=== PATIENT | female | born 1940 ===

== ENCOUNTER 2025-04-12 19:12 | Inpatient (IN) ==
[2025-04-12 19:46] LABS: Hematocrit (blood only) 30.6 % (37.0-47.0); Hemoglobin 10.2 g/dl (12.0-16.0); Immature Granulocytes # (auto) 0.05 K/uL (0.01-0.20); Immature Granulocytes % (auto) 0.5 %; Mean Corpuscular Hemoglobin 29.0 pg (25.0-34.0); Mean Corpuscular Volume 86.9 fL (80.0-100.0); Platelet Count 376 K/uL (130-400); RDW Standard Deviation 43.5 fL (36.4-46.3); Red Blood Count 3.52 M/uL (4.20-5.40); White Blood Count 9.47 K/ul (4.8-10.8)
[2025-04-12 20:02] LABS: Anion Gap 7.0 (3-11); Blood Urea Nitrogen 23.0 mg/dl (6-23); Calcium 7.5 mg/dl (8.6-10.3); Carbon Dioxide 27.0 mmol/L (21-32); Chloride 104.0 mmol/L (98-107); Creatinine Clr Calc Pharmacy 21.2 ml/min; Glucose 156.0 mg/dl (70-99(Fasting)); Magnesium 1.3 mg/dl (1.7-2.4); Potassium 3.6 mmol/L (3.5-5.1); Sodium 138.0 mmol/L (136-145)
[2025-04-12] MEDS: MAGNESIUM SULFATE / D5W 1 GM/100 ML BAG IV SCH (20:13)
[2025-04-12] MEDS: SODIUM CHLORIDE 0.9% 1,000 ML IV SCH (20:37)
[2025-04-12] MEDS: FIDAXOMICIN 200 MG TAB PO ONE (20:37)
[2025-04-12 21:45] LABS: Alanine Aminotransferase 75.0 U/L (7-52); Albumin Level 2.0 gm/dl (3.4-5.0); Alkaline Phosphatase 140.0 U/L (34-104); Bilirubin,Total 0.6 mg/dl (0.2-1.0); Total Protein 5.2 gm/dl (6.0-8.3)
--- NOTE | 2025-04-12 22:07 | History & Physical Report ---
Date of Service April 12, 2025 Assessment & Plan (1) C. difficile colitis: (2) Acute respiratory failure with hypoxia: (3) Hypomagnesemia: (4) Acute kidney injury: (5) Pneumonia: (6) Seizure disorder: Plan The patient is an 85-year-old female with a past medical history including GERD, hypertension, hyperlipidemia, seizure disorder, insomnia, constipation, dizziness, insomnia, and decreased oral intake. The patient is referred to the emergency department from [facility], after testing positive for C. difficile infection. The patient herself is confused and cannot contribute significantly to HPI review of systems. She was admitted to [facility] yesterday, and upon arrival to the facility she was noted to be weak and lethargic. Throughout last evening she would not allow staff to help her. Her oral intake was very poor last evening, but does not like peanut butter crackers. She was noted to be incontinent of stool last evening, and this today stool sample was obtained and was sent for analysis, and returned positive for C. difficile. She was then referred to [facility] emergency department for further evaluation and treatment. Significant laboratories in the ED showed magnesium 1.7, calcium 7.5, creatinine 1.81., AST 99, ALT 77, albumin 2.0. Chest x-ray showed left lower lobe pneumonia. EKG showed A-fib with RVR at 102. From the ED she was started on normal saline 80 mL/h. From the ED also had ordered 2 g magnesium sulfate IV. She was then referred for evaluation for admission to the [facility] hospitalist service. Acute respiratory failure with hypoxia- Pulse ox 80% on room air, improved to 95% on 2 L nasal cannula Chest x-ray with left lower lobe pneumonia MRSA swab Cefepime 2 g IV every 12 hours Duonebs every 2 hours as needed C. difficile colitis- Received Dificid x 1 in ED Placed on vancomycin 125 mg p.o. 4 times daily Zofran 4 mg IV every 6 hours as needed Pantoprazole 40 mg IV twice daily Acute kidney injury- Creatinine 1.81 on admission, presumptively this is acute kidney injury, as we have no baseline for comparison NSS 80 mL/h x 2 L, Recheck laboratories in the a.m. Hypomagnesemia- Magnesium 1.3 on admission Written for 2 g IV from the ED, will give additional 1 for total of 3 g Repeat laboratories in the a.m. Atrial fibrillation- Systolic blood pressure 96-100 Optimize magnesium as above Placed on IV fluids as above The patient will be admitted to telemetry for serial cardiac enzymes, serial EKG's, cardiac rhythm monitoring and a 2-D echocardiogram with Dopplers. Will need to get further records to see if there is a contraindication to the patient being anticoagulated Abnormal LFTs- No baseline for comparison Repeat laboratories in a.m., and further workup if indicated History of Present Illness Chief Complaint: The patient is referred to the emergency department from [facility], after testing positive for C. difficile infection. The patient he rself is confused and cannot contribute significantly to HPI review of systems. She was admitted to [facility] yesterday, and upon arrival to the facility she was noted to be weak and lethargic. Throughout last evening she would not allow staff to help her. Her oral intake was very poor last evening, but does not like peanut butter crackers. She was noted to be incontinent of stool last evening, and this today stool sample was obtained and was sent for analysis, and returned positive for C. difficile. She was then referred to [facility] emergency department for further evaluation and treatment. Primary Care Provider: [facility] The patient is an 85-year-old female with a past medical history including GERD, hypertension, hyperlipidemia, seizure disorder, insomnia, constipation, dizziness, insomnia, and decreased oral intake. The patient is referred to the emergency department from [facility], after testing positive for C. difficile infection. The patient herself is confused and cannot contribute significantly to HPI review of systems. She was admitted to [facility] yesterday, and upon arrival to the facility she was noted to be weak and lethargic. Throughout last evening she would not allow staff to help her. Her oral intake was very poor last evening, but does not like peanut butter crackers. She was noted to be incontinent of stool last evening, and this today stool sample was obtained and was sent for analysis, and returned positive for C. difficile. She was then referred to [facility] emergency department for further evaluation and treatment. Significant laboratories in the ED showed magnesium 1.7, calcium 7.5, creatinine 1.81., AST 99, ALT 77, albumin 2.0. Chest x-ray showed left lower lobe pneumonia. EKG showed A-fib with RVR at 102. From the ED she was started on normal saline 80 mL/h. From the ED also had ordered 2 g magnesium sulfate IV. She was then referred for evaluation for admission to the [facility] Hospitalist service. Allergies Allergy/AdvReac Type Severity Reaction Status Date / Time penicillin G Allergy Mild Rash Verified 04/12/25 22:21 Past Med/Surg History Problem List (Updated 04/12/25 @ 23:42 by Levon Jones MD) Acute respiratory failure with hypoxia Pneumonia Acute kidney injury Hypomagnesemia (Acute) C. 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 HEENT--PERRL, EOMI, mucous membranes and oropharynx dry. Neck--supple. No JVD. No bruits. Thyroid normal, trachea midline, no adenopathy. Heart--normal S1 and S2. No murmurs, rubs or gallops. Lungs--clear bilaterally, no respiratory distress, no accessory muscle use. Abdomen--normal bowel sounds and soft. Nontender. Nondistended, no hernias or masses, no organomegaly. Extremities--No edema. Dermatologic--skin is dry Neurologic--cranial nerves II through XII grossly intact. Rheumatologic--limited exam due to general weakness and confusion Psychiatric-confused Results & Data Results & Data Vital Signs (Past 12 Hours) Vital Signs Temp Pulse Pulse Resp BP BP Pulse Ox 04/12/25 21:17 94 04/12/25 21:17 88 L 04/12/25 21:17 101 H 22 99/56 L 92 04/12/25 20:36 104 H 18 96/68 L 96 04/12/25 19:20 36.8 C 110 H 20 110/79 92 04/12/25 19:16 114 H O2 Del Method O2 Flow Rate 04/12/25 21:17 Nasal Cannula 2 04/12/25 21:17 Room Air 04/12/25 21:17 Nasal Cannula 2 04/12/25 20:36 Nasal Cannula 2 04/12/25 19:20 Room Air 04/12/25 19:16 Laboratory Results Laboratory Results WBC 9.47 K/ul (4.8-10.8) 04/12/25 19:24 RBC 3.52 M/uL (4.20-5.40) L 04/12/25 19:24 Hgb 10.2 g/dl (12.0-16.0) L 04/12/25 19:24 Hct 30.6 % (37.0-47.0) L 04/12/25 19:24 MCV 86.9 fL (80.0-100.0) 04/12/25 19:24 MCH 29.0 pg (25.0-34.0) 04/12/25 19:24 MCHC 33.3 g/dL (32.0-36.0) 04/12/25 19:24 RDW Std Deviation 43.5 fL (36.4-46.3) 04/12/25 19:24 RDW Coeff of Mary 13.9 % (11.5-14.5) 04/12/25 19:24 Plt Count 376 K/uL (130-400) 04/12/25 19:24 MPV 10.2 fL (9.4-12.4) 04/12/25 19:24 Immature Gran % (Auto) 0.5 % 04/12/25 19:24 Neut % (Auto) 83.0 % 04/12/25 19:24 Lymph % (Auto) 8.6 % 04/12/25 19:24 Mckean % (Auto) 6.2 % 04/12/25 19:24 Eos % (Auto) 1.2 % 04/12/25 19:24 Baso % (Auto) 0.5 % 04/12/25 19:24 Neut # (Auto) 7.86 K/uL (1.40-6.50) H 04/12/25 19:24 Lymph # (Auto) 0.81 K/uL (1.20-3.40) L 04/12/25 19:24 Mckean # (Auto) 0.59 K/uL (0.11-0.59) 04/12/25 19:24 Eos # (Auto) 0.11 K/uL (0.00-0.50) 04/12/25 19:24 Baso # (Auto) 0.05 K/uL (0.00-0.20) 04/12/25 19:24 Immature Gran # (Auto) 0.05 K/uL (0.01-0.20) 04/12/25 19:24 Sodium 138 mmol/L (136-145) 04/12/25 19:24 Potassium 3.6 mmol/L (3.5-5.1) 04/12/25 19:24 Chloride 104 mmol/L (98-107) 04/12/25 19:24 Carbon Dioxide 27 mmol/L (21-32) 04/12/25 19:24 Anion Gap 7 (3-11) 04/12/25 19:24 BUN 23 mg/dl (6-23) 04/12/25 19:24 Creatinine 1.81 mg/dl (0.6-1.2) H 04/12/25 19:24 Est Cr Clr Drug Dosing 21.2 ml/min 04/12/25 19:24 eGFR 27.43 04/12/25 19:24 BUN/Creatinine Ratio 12.7 (10-20) 04/12/25 19:24 Glucose 156 mg/dl (70-99(Fasting)) H 04/12/25 19:24 Calcium 7.5 mg/dl (8.6-10.3) L 04/12/25 19:24 Magnesium 1.3 mg/dl (1.7-2.4) L 04/12/25 19:24 Total Bilirubin 0.6 mg/dl (0.2-1.0) 04/12/25 19:24 Direct Bilirubin 0.2 mg/dl (0-0.2) 04/12/25 19:24 AST 99 U/L (13-39) H 04/12/25 19:24 ALT 75 U/L (7-52) H 04/12/25 19:24 Alkaline Phosphatase 140 U/L (34-104) H 04/12/25 19:24 Total Protein 5.2 gm/dl (6.0-8.3) L 04/12/25 19:24 Albumin 2.0 gm/dl (3.4-5.0) L 04/12/25 19:24 Code Status & VTE Plan Code Status DNR/DNI. Review of transfer records from [facility] notes that they have a DNR order on file at their facility VTE Prophylaxis Plan VTE Prophylaxis will be ordered: Yes PG Care Time/CCT Total # of Minutes Spent Total Time Spent with Patient: Total time spent is greater than 50% in coordination of care (as documented) at patient's floor/unit and/or counseling patient: Coding Level of Care Code 06265 INT INP/OBS CARE 375MIN Diagnoses C. difficile colitis A04.72 Acute respiratory failure with hypoxia J96.01 Hypomagnesemia E83.42 Acute kidney injury N17.9 Pneumonia J18.9 Seizure disorder G40.909
[2025-04-12] MEDS: MAGNESIUM SULFATE / D5W 1 GM/100 ML BAG IV ONE (22:22)
[2025-04-12] MEDS: NSS + 20MEQ KCL 20 MEQ/1,000 ML BAG IV SCH (22:26)
--- NOTE | 2025-04-12 23:42 | Emergency Department Note ---
History of Present Illness General Chief complaint: Diarrhea Stated complaint: CDIFF Time Seen by Provider: 04/12/25 19:13 History of Present Illness Provider complaint: Diarrhea weakness 85-year-old [facility]. Patient states she has had diarrhea for last few days. Patient states she feels very weak. No abdominal pain. No fever. No chest pain or difficulty breathing. Allergies Allergy/AdvReac Type Severity Reaction Status Date / Time penicillin G Allergy Mild Rash Verified 04/12/25 22:21 Past Med/Surg History Problem List (Updated 04/12/25 @ 23:42 by Levon Jones MD) Acute respiratory failure with hypoxia Pneumonia Acute kidney injury Hypomagnesemia (Acute) C. 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 Bladder cancer Oropharyngeal dysphagia Diverticulitis Dizziness Seizure disorder Hyperlipidemia GERD (gastroesophageal reflux disease) Atrial fibrillation Social History Smoking Status: Never smoker Preferred Language: Croatian Feels Safe at Home: Yes Physical Exam Vital Signs Vital Signs - 24 hr 04/12/25 19:16 04/12/25 19:20 04/12/25 20:36 Temperature 36.8 C Temperature Source Oral Pulse Rate 114 H 110 H Pulse Rate [Apical] 104 H Pulse Rhythm Regular Pulse Strength Normal Respiratory Rate 20 18 Respiratory Effort / Characteristics Non-Labored Spontaneous Respiratory Depth Normal Respiratory Pattern Regular Blood Pressure 110/79 Blood Pressure [Left Arm] 96/68 L Blood Pressure Mean 89 Blood Pressure Mean [Left Arm] 77 Blood Pressure Position Lying Blood Pressure Position [Left Arm] Lying Pulse Oximetry 92 96 Oxygen Delivery Method Room Air Nasal Cannula Oxygen Flow Rate 2 Sepsis Recent Fever Within 48 Hours No Sepsis New/Unexplained Change in Mental Status No Sepsis Action Taken by Nursing No Action Required 04/12/25 21:17 04/12/25 21:17 04/12/25 21:17 Temperature Temperature Source Pulse Rate Pulse Rate [Apical] 101 H Pulse Rhythm Pulse Strength Respiratory Rate 22 Respiratory Effort / Characteristics Non-Labored Respiratory Depth Normal Respiratory Pattern Regular Blood Pressure Blood Pressure [Left Arm] 99/56 L Blood Pressure Mean Blood Pressure Mean [Left Arm] 70 Blood Pressure Position Blood Pressure Position [Left Arm] Semi-fowlers Pulse Oximetry 92 88 L 94 Oxygen Delivery Method Nasal Cannula Room Air Nasal Cannula Oxygen Flow Rate 2 2 Sepsis Recent Fever Within 48 Hours Sepsis New/Unexplained Change in Mental Status Sepsis Action Taken by Nursing Physical Exam CV: Normal rate, regular rhythm, normal heart sounds and intact distal pulses. There is no peripheral edema. Palpable radial pulses bue. PULM/CHEST: Effort normal and breath sounds normal. No respiratory distress. No stridor. no wheezes. no rales. ABD: The abdomen is soft. There is no tenderness. Course Course 1912: The patient was evaluated in room B2. A complete history and physical exam was performed Cardiac monitoring: An order was placed for continuous cardiac monitoring. The monitor shows a rate of 100 with sinus rhythm interpreted by wy 2020: Vital signs stable. Labs show normal white blood cell count. Magnesium 1.3. Magnesium repletion started in the emergency department. Patient will be admitted to the hospitalist team. Dificid ordered for the patient. Administered Medications Potassium Chloride/Sodium Chloride (Normal Saline W/20 Meq Kcl) 20 meq in 1,000 mls @ 100 mls/hr IV .Q10H [facility] Stop: 04/13/25 17:29 Last Admin: 04/12/25 22:26 Dose: 100 mls/hr Documented By: RODRIGUE Magnesium Sulfate/Dextrose (Magnesium Sulfate / D5w) 1 gm in 100 mls @ 50 mls/hr IV ONE ONE Stop: 04/12/25 23:47 Last Admin: 04/12/25 22:22 Dose: 50 mls/hr Documented By: RODRIGUE Discontinued Medications Fidaxomicin (Fidaxomicin 200 Mg Tab) 200 mg PO NOW ONE Stop: 04/12/25 20:23 Last Admin: 04/12/25 20:37 Dose: 200 mg Documented By: JAKUB Magnesium Sulfate/Dextrose (Magnesium Sulfate / D5w) 1 gm in 100 mls @ 100 mls/hr IV Q1H [facility] Stop: 04/12/25 22:06 Last Infusion: 04/12/25 22:25 Dose: Infused Documented By: Admin: 04/12/25 21:18 Dose: 100 mls/hr Documented By: Infusion: 04/12/25 21:18 Dose: Infused Documented By: Admin: 04/12/25 20:13 Dose: 100 mls/hr Documented By: ETHAN Sodium Chloride (Nss) 1,000 mls @ 80 mls/hr IV .[id number] [facility] Stop: 04/15/25 20:29 Last Infusion: 04/12/25 22:25 Dose: 0 mls/hr Documented By: Admin: 04/12/25 20:37 Dose: 80 mls/hr Documented By: JAKUB Levetiracetam (Levetiracetam Oral Soln 100mg/Ml) 250 mg PO NOW STA Stop: 04/12/25 22:04 Last Admin: 04/12/25 22:55 Dose: 250 mg Documented By: RODRIGUE Miscellaneous Information (Patient's Allergy Info Needs Entered) 1 each N/A NOW STA Stop: 04/12/25 21:53 Last Admin: 04/12/25 22:21 Dose: Not Given Documented By: RODRIGUE Medical Decision Making Medical Records Attestation: I reviewed the patient's medical records. Medical records reviewed. Patient has a stool study performed from earlier today in our system which is positive for C. difficile toxin gene and toxin. Laboratory Data Attestation: I reviewed the patient's lab results. 04/12/25 19:24 04/12/25 19:24 Lab Results 04/12/25 Range/Units 19:24 WBC 9.47 (4.8-10.8) K/ul RBC 3.52 L (4.20-5.40) M/uL Hgb 10.2 L (12.0-16.0) g/dl Hct 30.6 L (37.0-47.0) % MCV 86.9 (80.0-100.0) fL MCH 29.0 (25.0-34.0) pg MCHC 33.3 (32.0-36.0) g/dL RDW Std Deviation 43.5 (36.4-46.3) fL RDW Coeff of Mary 13.9 (11.5-14.5) % Plt Count 376 (130-400) K/uL MPV 10.2 (9.4-12.4) fL Immature Gran % (Auto) 0.5 % Neut % (Auto) 83.0 % Lymph % (Auto) 8.6 % Gilmer % (Auto) 6.2 % Eos % (Auto) 1.2 % Baso % (Auto) 0.5 % Neut # (Auto) 7.86 H (1.40-6.50) K/uL Lymph # (Auto) 0.81 L (1.20-3.40) K/uL Gilmer # (Auto) 0.59 (0.11-0.59) K/uL Eos # (Auto) 0.11 (0.00-0.50) K/uL Baso # (Auto) 0.05 (0.00-0.20) K/uL Immature Gran # (Auto) 0.05 (0.01-0.20) K/uL Sodium 138 (136-145) mmol/L Potassium 3.6 (3.5-5.1) mmol/L Chloride 104 (98-107) mmol/L Carbon Dioxide 27 (21-32) mmol/L Anion Gap 7 (3-11) BUN 23 (6-23) mg/dl Creatinine 1.81 H (0.6-1.2) mg/dl Est Cr Clr Drug Dosing 21.2 ml/min eGFR 27.43 BUN/Creatinine Ratio 12.7 (10-20) Glucose 156 H (70-99(Fasting)) mg/dl Calcium 7.5 L (8.6-10.3) mg/dl Magnesium 1.3 L (1.7-2.4) mg/dl Total Bilirubin 0.6 (0.2-1.0) mg/dl Direct Bilirubin 0.2 (0-0.2) mg/dl AST 99 H (13-39) U/L ALT 75 H (7-52) U/L Alkaline Phosphatase 140 H (34-104) U/L Total Protein 5.2 L (6.0-8.3) gm/dl Albumin 2.0 L (3.4-5.0) gm/dl [facility] Narrative 1913: The patient was evaluated in room B2. A complete history and physical exam was performed Cardiac monitoring: An order was placed for continuous cardiac monitoring. The monitor shows a rate of 100 with sinus rhythm interpreted by wy 2020: Vital signs stable. Labs show normal white blood cell count. Magnesium 1.3. Magnesium repletion started in the emergency department. Patient will be admitted to the hospitalist team. Dificid ordered for the patient. Impression & Plan Hypomagnesemia, C. difficile colitis Discharge Plan Visit Data Chief Complaint: Diarrhea Stated Complaint: CDIFF ED Provider: Levon Jones Discharge Problem: Hypomagnesemia, C. difficile colitis Patient Disposition: Admitted As Inpatient Condition: Fair Discharge Instructions Interventions: ED Discharge Assessment Last Done: 04/12/25 23:09
[2025-04-12] MEDS ORDERED: ONDANSETRON INJ 2 MG/ML 2 ML VIAL IV PRN (23:47)
[2025-04-12] MEDS ORDERED: ALBUT/IPRATROP 3MG/0.5MG NEB 3 ML VIAL NEB PRN (23:59)
--- NOTE | 2025-04-13 00:15 | XRay Report ---
Exam(s): XR CXR 1 VIEW EXAM: XR Chest, 1 View CLINICAL HISTORY: Reason for exam: hypoxia. TECHNIQUE: Frontal view of the chest. COMPARISON: No relevant prior studies available. FINDINGS: Lungs: Increased streaky density in the left lower lobe partially obscuring the left diaphragm consistent with pneumonia, less likely atelectasis. The right lung is clear. Pleural space: Unremarkable. No pneumothorax. Heart: Unremarkable. No cardiomegaly. Mediastinum: Unremarkable. Normal mediastinal contour. Bones/joints: Mild degenerative changes in the thoracic spine. No acute fracture. Vasculature: The aortic arch is mildly calcified. Upper abdomen: Unremarkable as visualized. No pneumoperitoneum under the diaphragm. IMPRESSION: Increased streaky density in the left lower lobe partially obscuring the left diaphragm consistent with pneumonia, less likely atelectasis. Electronically signed by: Jalil Ramírez MD 04/13/25 00:14 AM
[2025-04-13] MEDS: SODIUM CHLORIDE 0.9% 1,000 ML IV SCH (00:39)
[2025-04-13] MEDS: CEFEPIME 2000MG 2,000 MG/20 ML SYR IV STA (00:39)
[2025-04-13] MEDS: PANTOprazole 40 MG/10 ML SYR IV SCH (00:40)
[2025-04-13 07:08] LABS: Alanine Aminotransferase 60.0 U/L (7-52); Albumin Globulin Ratio 0.8 (0.9-2); Albumin Level 1.8 gm/dl (3.4-5.0); Alkaline Phosphatase 109.0 U/L (34-104); Anion Gap 4.0 (3-11); Bilirubin,Total 0.4 mg/dl (0.2-1.0); Blood Urea Nitrogen 22.0 mg/dl (6-23); Calcium 7.3 mg/dl (8.6-10.3); Carbon Dioxide 27.0 mmol/L (21-32); Chloride 107.0 mmol/L (98-107); Creatinine Clr Calc Pharmacy 25.7 ml/min; Globulin 2.4 gm/dl (2.5-4.0); Glucose 106.0 mg/dl (70-99(Fasting)); Magnesium 2.3 mg/dl (1.7-2.4); Potassium 3.7 mmol/L (3.5-5.1); Sodium 138.0 mmol/L (136-145); Total Protein 4.2 gm/dl (6.0-8.3)
[2025-04-13 07:45] LABS: Appearance Urine Turbid (Clear); Bacteria Urine Automated 4+ (None Seen); Cast Urine Automated 0-2 /lpf (0-2); Epithelial Cell Urine Auto 0-2 /hpf (0-2); Glucose Urine UA Negative (Negative); RBC Urine Automated 0-2 /hpf (0-2); WBC Urine Automated >50 /hpf (0-5)
[2025-04-13] MEDS: VANCOMYCIN HCL 125 MG CAP PO SCH (09:15)
[2025-04-13] MEDS: CEFEPIME 1000MG 1,000 MG/10 ML SYR IV SCH (09:15)
[2025-04-13] MEDS: HEPARIN SOD 5,000 UNIT/0.5 ML VIAL SQ SCH (09:15)
[2025-04-13] MEDS: levETIRAcetam 250 MG TAB PO SCH (09:16)
--- NOTE | 2025-04-13 17:05 | XCELERA ---
[id number] \\[email or web address]\[id number]
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
[2025-04-14 06:49] LABS: Hematocrit (blood only) 24.7 % (37.0-47.0); Hemoglobin 8.1 g/dl (12.0-16.0); Immature Granulocytes # (auto) 0.04 K/uL (0.01-0.20); Immature Granulocytes % (auto) 0.6 %; Mean Corpuscular Hemoglobin 29.0 pg (25.0-34.0); Mean Corpuscular Volume 88.5 fL (80.0-100.0); Platelet Count 314 K/uL (130-400); RDW Standard Deviation 43.8 fL (36.4-46.3); Red Blood Count 2.79 M/uL (4.20-5.40); White Blood Count 7.04 K/ul (4.8-10.8)
[2025-04-14 07:10] LABS: Alanine Aminotransferase 52.0 U/L (7-52); Albumin Globulin Ratio 0.8 (0.9-2); Albumin Level 1.7 gm/dl (3.4-5.0); Alkaline Phosphatase 96.0 U/L (34-104); Anion Gap 3.0 (3-11); Bilirubin,Total 0.4 mg/dl (0.2-1.0); Blood Urea Nitrogen 19.0 mg/dl (6-23); Calcium 6.9 mg/dl (8.6-10.3); Carbon Dioxide 25.0 mmol/L (21-32); Chloride 111.0 mmol/L (98-107); Creatinine Clr Calc Pharmacy 30.9 ml/min; Globulin 2.1 gm/dl (2.5-4.0); Glucose 90.0 mg/dl (70-99(Fasting)); Magnesium 1.9 mg/dl (1.7-2.4); Potassium 3.2 mmol/L (3.5-5.1); Sodium 139.0 mmol/L (136-145); Total Protein 3.8 gm/dl (6.0-8.3)
[2025-04-14] MEDS: POTASSIUM CHLORIDE CRTAB 20 MEQ TABCR PO STA (09:55)
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
--- NOTE | 2025-04-15 06:01 | Electrocardiogram Report ---
Test Reason : Blood Pressure : */* mmHG Vent. Rate : 102 BPM Atrial Rate : * BPM P-R Int : * ms QRS Dur : 68 ms QT Int : 376 ms P-R-T Axes : * 12 -2 degrees QTcB Int : 490 ms Sinus rhythm with frequent , and consecutive Premature atrial complexes Low voltage QRS Prolonged QT Abnormal ECG No previous ECGs available Confirmed by Gigi Klein [id number] on 04/15/2025 6:00:57 AM Referred By: EMIGDIO Dale [place] Confirmed By: Gigi Klein
[2025-04-15 07:17] LABS: Hematocrit (blood only) 25.5 % (37.0-47.0); Hemoglobin 8.1 g/dl (12.0-16.0); Immature Granulocytes # (auto) 0.04 K/uL (0.01-0.20); Immature Granulocytes % (auto) 0.6 %; Mean Corpuscular Hemoglobin 28.3 pg (25.0-34.0); Mean Corpuscular Volume 89.2 fL (80.0-100.0); Platelet Count 328 K/uL (130-400); RDW Standard Deviation 45.3 fL (36.4-46.3); Red Blood Count 2.86 M/uL (4.20-5.40); White Blood Count 7.24 K/ul (4.8-10.8)
[2025-04-15 07:56] LABS: Albumin Level 1.6 gm/dl (3.4-5.0); Anion Gap 2.0 (3-11); Bilirubin,Total 0.4 mg/dl (0.2-1.0); Calcium 7.1 mg/dl (8.6-10.3); Carbon Dioxide 25.0 mmol/L (21-32); Chloride 113.0 mmol/L (98-107); Magnesium 1.8 mg/dl (1.7-2.4); Potassium 3.7 mmol/L (3.5-5.1); Sodium 140.0 mmol/L (136-145)
[2025-04-15 08:02] LABS: Alanine Aminotransferase 48.0 U/L (7-52); Albumin Globulin Ratio 0.8 (0.9-2); Alkaline Phosphatase 90.0 U/L (34-104); Blood Urea Nitrogen 16.0 mg/dl (6-23); Creatinine Clr Calc Pharmacy 30.7 ml/min; Globulin 2.1 gm/dl (2.5-4.0); Glucose 87.0 mg/dl (70-99(Fasting)); Total Protein 3.7 gm/dl (6.0-8.3)
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
[2025-04-16 07:34] LABS: Anion Gap 2.0 (3-11); Blood Urea Nitrogen 14.0 mg/dl (6-23); Calcium 7.3 mg/dl (8.6-10.3); Carbon Dioxide 26.0 mmol/L (21-32); Chloride 112.0 mmol/L (98-107); Creatinine Clr Calc Pharmacy 35.8 ml/min; Glucose 89.0 mg/dl (70-99(Fasting)); Potassium 3.5 mmol/L (3.5-5.1); Sodium 140.0 mmol/L (136-145)
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
[2025-04-17 07:36] LABS: Hematocrit (blood only) 25.3 % (37.0-47.0); Hemoglobin 8.3 g/dl (12.0-16.0); Mean Corpuscular Hemoglobin 28.8 pg (25.0-34.0); Mean Corpuscular Volume 87.8 fL (80.0-100.0); Platelet Count 360 K/uL (130-400); RDW Standard Deviation 45.1 fL (36.4-46.3); Red Blood Count 2.88 M/uL (4.20-5.40); White Blood Count 8.48 K/ul (4.8-10.8)
[2025-04-17 07:52] LABS: Anion Gap 3.0 (3-11); Blood Urea Nitrogen 13.0 mg/dl (6-23); Calcium 7.2 mg/dl (8.6-10.3); Carbon Dioxide 24.0 mmol/L (21-32); Chloride 112.0 mmol/L (98-107); Creatinine Clr Calc Pharmacy 33.9 ml/min; Glucose 101.0 mg/dl (70-99(Fasting)); Potassium 3.4 mmol/L (3.5-5.1); Sodium 139.0 mmol/L (136-145)
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
[2025-04-17 23:05] VITALS: O2SAT 92
[2025-04-18 07:32] VITALS: RESP 18; TEMP 97.7
[2025-04-18 07:56] LABS: Hematocrit (blood only) 25.9 % (37.0-47.0); Hemoglobin 8.5 g/dl (12.0-16.0); Mean Corpuscular Hemoglobin 28.9 pg (25.0-34.0); Mean Corpuscular Volume 88.1 fL (80.0-100.0); Platelet Count 339 K/uL (130-400); RDW Standard Deviation 44.2 fL (36.4-46.3); Red Blood Count 2.94 M/uL (4.20-5.40); White Blood Count 8.84 K/ul (4.8-10.8)
[2025-04-18 08:12] LABS: Anion Gap 4.0 (3-11); Blood Urea Nitrogen 13.0 mg/dl (6-23); Calcium 7.3 mg/dl (8.6-10.3); Carbon Dioxide 25.0 mmol/L (21-32); Chloride 110.0 mmol/L (98-107); Creatinine Clr Calc Pharmacy 33.1 ml/min; Glucose 107.0 mg/dl (70-99(Fasting)); Potassium 3.2 mmol/L (3.5-5.1); Sodium 139.0 mmol/L (136-145)
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
[2025-04-18] MEDS: SODIUM CHLORIDE 0.9% 1,000 ML IV SCH (10:03)
[2025-04-18 10:12] VITALS: BP 94/60; PULSE 96
[2025-04-18] MEDS: POTASSIUM CHLORIDE CRTAB 20 MEQ TABCR PO STA (10:48)
[2025-04-19] MEDS ORDERED: POTASSIUM CHLORIDE CRTAB 20 MEQ TABCR PO SCH (09:00)
== END 2025-04-18 12:08 | disposition home or self-care (01) | DRG 371 ==
LOC: SUATTDRO → ED 19:12 → 2W 22:01 → SUATTDRO 22:01 → 2W 23:09